=== PATIENT | male | born 1975 | race Caucasian/White ===

== ENCOUNTER 2019-09-09 13:47 | Emergency (ER) | payer SELFPAY ==
[~2019-09-09] VITALS: Ht 175.2 cm; Wt 69.1 kg
[~2019-09-09 13:47] MED LIST: MECL-124
[2019-09-09] MEDS ORDERED: DEXAMETHASONE 10 MG/ML (DECADRON) 1 ML VIAL IM ONE (14:15)
[2019-09-09] MEDS ORDERED: MECLIZINE 25 MG (ANTIVERT) TAB PO ONE (14:15)
--- NOTE | 2019-09-09 14:15 | ED EENT ---
History of Present Illness General Chief Complaint: Ear Problems Stated Complaint: DIZZINESS;LEFT EAR PAIN Nursing Triage Note: HAS BEEN DIZZY FOR 2 MONTHS WITH FLORESITA EAR PAIN FOR 2 WEEKS. REPORTS HE IS HOMELESS. HAS PMH PF BEING DIZZY CAN'T AFFORD ANTIVERT Source: patient Exam Limitations: no limitations History of Present Illness Date Seen by Provider: Sep 09, 2019 Time Seen by Provider: 14:13 Initial Comments To ER with dizziness for 2 months, has some tendinitis, recently got hearing aids, has a left-sided earache. Currently homeless and cannot afford his dizziness medications. Timing/Duration: other Severity: moderate Location: ear (L) Associated Symptoms: denies symptoms Allergies and Home Medications Allergies Coded Allergies: No Known Drug Allergies (Unverified Allergy, Mild, 07/22/09) Patient Home Medication List Home Medication List Reviewed: Yes Review of Systems Review of Systems Constitutional: see HPI Eyes: No Symptoms Reported Ears: See HPI Nose: no symptoms reported Mouth: no symptoms reported Throat: no symptoms reported Respiratory: no symptoms reported Cardiovascular: no symptoms reported Musculoskeletal: no symptoms reported Past Xbjmddd-Rkifhp-Hqundu Hx Patient Social History Alcohol Use: Occasionally Uses Alcohol Beverage of Choice: Beer Recreational Drug Use: Yes (METH,MARIJUANA) Smoking Status: Current Everyday Smoker Recent Foreign Travel: No Contact w/Someone Who Travel: No Recent Infectious Disease Expo: No Recent Hopitalizations: Yes (AGE 8) Past Medical History Surgeries: No Respiratory: Yes Cardiac: No Reproductive Disorders: No Musculoskeletal: Yes (TORN LIGAMENTS IN LEFT KNEE) Psychosocial: Yes (ANGER PROBLEMS,HX.HOSP.FOR MENTAL ILLNESS) Blood Disorders: No Physical Exam Vital Signs Vital Signs - First Documented 09/09/19 14:01 Temp 35.7 Pulse 95 Resp 18 B/P (MAP) 117/80 (92) Height, Weight, BMI Height: '" Weight: lbs. oz. kg; 22.00 BMI Method: General Appearance: WD/WN, no apparent distress Eyes: bilateral eye normal inspection, bilateral eye PERRL, bilateral eye EOMI Ears: bilateral ear auricle normal, bilateral ear canal normal, bilateral ear other (bilaterally there is scarring of the tympanic membranes, no bulging is seen.) Neck: non-tender, full range of motion Respiratory: normal breath sounds, no respiratory distress, no accessory muscle use Gastrointestinal: normal bowel sounds, non tender Skin: normal color, warm/dry Progress/Results/Core Measures Results/Orders My Orders Orders - NATALIA RIVERA APRN Meclizine Tablet (Antivert Tablet) (09/09/19 14:15) Dexamethasone Injection (Decadron Inject (09/09/19 14:15) Vital Signs/I&O 09/09/19 14:01 Temp 35.7 Pulse 95 Resp 18 B/P (MAP) 117/80 (92) Blood Pressure Mean: 92 Departure Impression Primary Impression: Vertigo Disposition: 01 HOME, SELF-CARE Condition: Stable Departure-Patient Inst. Decision time for Depature: 14:16 Referrals: NO,LOCAL PHYSICIAN (PCP/Family) Primary Care Physician Patient Instructions: Vertigo (a Type of Dizziness) (DC) Add. Discharge Instructions: 1. Return to ER for any concerns 2. Follow-up with her doctor next week 3. All discharge instructions reviewed with patient and/or family. Voiced understanding. NATALIA RIVERA APRN Sep 09, 2019 14:15
[2019-09-09 14:44] VITALS: BP 117/80
== END 2019-09-09 14:47 | disposition home or self-care (01) ==
LOC: EDUNIT# 13:47 → ER 13:48
DX: R42 Dizziness and giddiness (principal); F17.200 Nicotine dependence, unspecified, uncomplicated
CPT/HCPCS: 96372; 99284

== ENCOUNTER 2019-12-28 20:41 | Emergency (ER) | payer SELFPAY ==
[~2019-12-28] VITALS: Ht 175.3 cm; Wt 71.3 kg
--- OUTSIDE RECORDS SUMMARY | 2019-12-28 20:47 | XMS REPORT | Continuity of Care Document ---
Author Organization Unknown Address Unknown Phone Unavailable Allergies Active Description Code Type Severity Reaction Onset Reported/Identified Relationship to Patient Clinical Status Yes No Known Drug Allergies [id number] Drug Allergy Mild N/A 07/22/2009 Medications There is no data. Problems There is no data. Procedures There is no data. Results There is no data. Encounters ACCT No. Visit Date/Time Discharge Status Pt. Type Provider Facility Loc./Unit Complaint [id number] 09/09/2019 13:48:00 020 14:47:00 DIS Emergency NATALIA RIVERA APRN [facility] ER DIZZINESS;LEFT EAR PAIN
[2019-12-28] MEDS ORDERED: LACTATED RINGERS 1,000 ML IV ONE (21:00)
[2019-12-28] MEDS ORDERED: HYOSCYAMINE 0.125 MG (LEVSIN) TAB SL ONE (21:00)
[2019-12-28] MEDS ORDERED: ONDANSETRON 4 MG/2 ML (SDV) Z0FRAN IVP ONE (21:00)
[2019-12-28 21:23] LABS: BASOPHILS % (AUTO) 0 % (0-10); EOSINOPHILS # (AUTO) 0.2 10^3/uL (0.0-0.3); EOSINOPHILS % (AUTO) 3 % (0-10); HEMATOCRIT 39 % (40-54); HEMOGLOBIN 13.7 G/DL (13.3-17.7); LYMPHOCYTES # (AUTO) 2.5 X 10^3 (1.0-4.0); LYMPHOCYTES % (AUTO) 33 % (12-44); MEAN CORPUSCULAR HEMOGLOBIN 35 PG (25-34); MEAN CORPUSCULAR HGB CONC 35 G/DL (32-36); MEAN CORPUSCULAR VOLUME 100 FL (80-99); MONOCYTES # (AUTO) 0.9 X 10^3 (0.0-1.0); MONOCYTES % (AUTO) 12 % (0-12); NEUTROPHILS % (AUTO) 52 % (42-75); PLATELET COUNT 212 10^3/uL (130-400); RED CELL DISTRIBUTION WIDTH 12.3 % (10.0-14.5); WHITE BLOOD COUNT 7.7 10^3/uL (4.3-11.0)
[2019-12-28 21:35] LABS: ALBUMIN 3.7 GM/DL (3.2-4.5)
[2019-12-28 21:36] LABS: CHLORIDE 108 MMOL/L (98-107); POTASSIUM 3.6 MMOL/L (3.6-5.0); SODIUM 142 MMOL/L (135-145)
[2019-12-28 21:37] LABS: CALCIUM 8.5 MG/DL (8.5-10.1)
[2019-12-28 21:38] LABS: GLUCOSE 109 MG/DL (70-105); TOTAL PROTEIN 6.3 GM/DL (6.4-8.2)
[2019-12-28 21:39] LABS: CARBON DIOXIDE 25 MMOL/L (21-32)
[2019-12-28 21:40] LABS: BILIRUBIN,TOTAL 0.4 MG/DL (0.1-1.0)
[2019-12-28 21:41] LABS: ALKALINE PHOSPHATASE 31 U/L (40-136)
[2019-12-28 21:42] LABS: GFR ESTIMATED > 60
[2019-12-28 21:43] LABS: BUN/CREATININE RATIO 16
[2019-12-28 21:44] LABS: ALANINE AMINOTRANSFERASE 44 U/L (0-55); MAGNESIUM 1.7 MG/DL (1.6-2.4)
--- NOTE | 2019-12-28 22:04 | ED GI ---
General Chief Complaint: Abdominal/GI Problems Stated Complaint: DIARRHEA, ABD PAIN Nursing Triage Note: c/o abdominal cramping/diarrhea x2 days. Sepsis Screen: No Definite Risk Source of Information: Patient Exam Limitations: No Limitations History of Present Illness Date Seen by Provider: Dec 28, 2019 Time Seen by Provider: 20:50 Allergies and Home Medications Allergies Coded Allergies: No Known Drug Allergies (Unverified Allergy, Mild, 07/22/09) Past Hiphslb-Lpbvad-Tdtgvq Hx Patient Social History Alcohol Use: Occasionally Uses Number of Drinks Today: AA Alcohol Beverage of Choice: Beer Recreational Drug Use: Yes Drug of Choice: cannibus Smoking Status: Current Everyday Smoker Type Used: Cigarettes 2nd Hand Smoke Exposure: Yes Recent Foreign Travel: No Contact w/Someone Who Travel: No Recent Infectious Disease Expo: No Recent Hopitalizations: No Physical Abuse: No Sexual Abuse: No Mistreated: No Fear: No Immunizations Up To Date Tetanus Booster (TDap): Unknown Seasonal Allergies Seasonal Allergies: No Past Medical History Surgeries: No Respiratory: No Cardiac: No Neurological: No Reproductive Disorders: No Genitourinary: No Gastrointestinal: No Musculoskeletal: Yes (TORN LIGAMENTS IN LEFT KNEE) Endocrine: No HEENT: No Cancer: No Psychosocial: Yes (ANGER PROBLEMS,HX.HOSP.FOR MENTAL ILLNESS) Integumentary: No Blood Disorders: No Physical Exam Vital Signs Vital Signs - First Documented 12/28/19 20:45 Temp 37.4 Pulse 79 Resp 18 B/P (MAP) 151/100 (117) Pulse Ox 99 O2 Delivery Room Air Capillary Refill : Less Than 3 Seconds Height/Weight/BMI Height: '" Weight: lbs. oz. kg; 23.00 BMI Method: Progress/Results/Core Measures Results/Orders Lab Results Laboratory Tests Test 12/28/19 21:10 Range/Units White Blood Count 7.7 4.3-11.0 10^3/uL Red Blood Count 3.94 L 4.35-5.85 10^6/uL Hemoglobin 13.7 13.3-17.7 G/DL Hematocrit 39 L 40-54 % Mean Corpuscular Volume 100 H 80-99 FL Mean Corpuscular Hemoglobin 35 H 25-34 PG Mean Corpuscular Hemoglobin Concent 35 32-36 G/DL Red Cell Distribution Width 12.3 10.0-14.5 % Platelet Count 212 130-400 10^3/uL Mean Platelet Volume 10.0 7.4-10.4 FL Neutrophils (%) (Auto) 52 42-75 % Lymphocytes (%) (Auto) 33 12-44 % Monocytes (%) (Auto) 12 0-12 % Eosinophils (%) (Auto) 3 0-10 % Basophils (%) (Auto) 0 0-10 % Neutrophils # (Auto) 4.0 1.8-7.8 X 10^3 Lymphocytes # (Auto) 2.5 1.0-4.0 X 10^3 Monocytes # (Auto) 0.9 0.0-1.0 X 10^3 Eosinophils # (Auto) 0.2 0.0-0.3 10^3/uL Basophils # (Auto) 0.0 0.0-0.1 10^3/uL Sodium Level 142 135-145 MMOL/L Potassium Level 3.6 3.6-5.0 MMOL/L Chloride Level 108 H 98-107 MMOL/L Carbon Dioxide Level 25 21-32 MMOL/L Anion Gap 9 5-14 MMOL/L Blood Urea Nitrogen 13 7-18 MG/DL Creatinine 0.80 0.60-1.30 MG/DL Estimat Glomerular Filtration Rate > 60 BUN/Creatinine Ratio 16 Glucose Level 109 H 70-105 MG/DL Calcium Level 8.5 8.5-10.1 MG/DL Corrected Calcium 8.7 8.5-10.1 MG/DL Magnesium Level 1.7 1.6-2.4 MG/DL Total Bilirubin 0.4 0.1-1.0 MG/DL Aspartate Amino Transf (AST/SGOT) 33 5-34 U/L Alanine Aminotransferase (ALT/SGPT) 44 0-55 U/L Alkaline Phosphatase 31 L 40-136 U/L Total Protein 6.3 L 6.4-8.2 GM/DL Albumin 3.7 3.2-4.5 GM/DL My Orders Orders - LIBERTAD CARDOZA MD Cbc With Automated Diff (12/28/19 21:00) Comprehensive Metabolic Panel (12/28/19 21:00) Magnesium (12/28/19 21:00) Ua Culture If Indicated (12/28/19 21:00) Ed Iv/Invasive Line Start (12/28/19 21:00) Lactated Ringers (Lr 1000 Ml Iv Solution (12/28/19 21:00) Ondansetron Injection (Zofran Injectio (12/28/19 21:00) Hyoscyamine Sl Tablet (Levsin Sl Tablet) (12/28/19 21:00) Ketorolac Injection (Toradol Injection) (12/28/19 22:15) Medications Given in ED Current Medications Medications Dose Ordered Sig/Jesus Route Start Time Stop Time Status Last Admin Dose Admin Hyoscyamine Sulfate 0.25 mg ONCE ONCE SL 12/28/19 21:00 12/28/19 21:02 DC 12/28/19 21:15 0.25 MG Lactated Ringer's 1,000 ml @ 0 mls/hr Q0M ONCE IV 12/28/19 21:00 12/28/19 21:02 DC 12/28/19 21:16 0 MLS/HR Ondansetron HCl 8 mg ONCE ONCE IVP 12/28/19 21:00 12/28/19 21:02 DC 12/28/19 21:16 8 MG Vital Signs/I&O 12/28/19 20:45 Temp 37.4 Pulse 79 Resp 18 B/P (MAP) 151/100 (117) Pulse Ox 99 O2 Delivery Room Air Blood Pressure Mean: 117 Departure Impression Primary Impression: Diarrhea Qualified Codes: R19.7 - Diarrhea, unspecified Additional Impressions: Nausea alone Abdominal cramping Disposition: 01 HOME, SELF-CARE Condition: Improved Departure-Patient Inst. Decision time for Depature: 22:06 Referrals: NO,LOCAL PHYSICIAN (PCP/Family) Primary Care Physician Patient Instructions: Acute Abdomen (Belly Pain), Adult (DC), Diarrhea in Adolescents and Adults, Food Poisoning Add. Discharge Instructions: Drink plenty of clear liquids. Gradually advance your diet with small quantities of bland food as tolerated. Uses Zofran (ondansetron) as prescribed for nausea and vomiting. Use Levsin (hyoscyamine) as prescribed for abdominal cramping and diarrhea. Additionally you may use [id number] Imodium for diarrhea. For pain take Tylenol (acetaminophen) up to 1000 mg every 6 hours as needed. You should gradually improve over the next couple of days. If not worse symptoms worsen, return to care. All discharge instructions reviewed with patient and/or family. Voiced understanding. Scripts Ondansetron (Ondansetron Odt) 4 Mg Tab.rapdis 4 MG PO Q4H PRN for NAUSEA/VOMITING, #10 TAB Prov: LIBERTAD CARDOZA MD 12/28/19 Hyoscyamine Sulfate (Levsin-Sl) 0.125 Mg Tab.subl 1-2 TAB SL Q4H PRN for CRAMPS, #10 TAB 0 Refills Prov: LIBERTAD CARDOZA MD 12/28/19 LIBERTAD CARDOZA MD Dec 28, 2019 22:04
[2019-12-28] MEDS ORDERED: HYOS0.1283 SL (22:10)
[2019-12-28] MEDS ORDERED: ONDA4TAB11 PO (22:10)
[2019-12-28 22:14] LABS: BILIRUBIN,URINE NEGATIVE (NEGATIVE); CLARITY,URINE CLEAR; COLOR,URINE YELLOW; GLUCOSE, URINE (UA) NEGATIVE (NEGATIVE); KETONES,URINE NEGATIVE (NEGATIVE); LEUKOCYTE ESTERASE ,URINE NEGATIVE (NEGATIVE); NITRITE,URINE NEGATIVE (NEGATIVE); PROTEIN,URINE NEGATIVE (NEGATIVE)
[2019-12-28] MEDS ORDERED: KETOROLAC 30 MG/ML VIAL IVP ONE (22:15)
[2019-12-28 22:20] VITALS: BP 143/103
[2019-12-28 22:24] LABS: AMORPHOUS SEDIMENT,UR FEW AMOR URATES /LPF; BACTERIA,URINE NEGATIVE /HPF
== END 2019-12-28 22:23 | disposition home or self-care (01) ==
LOC: EDUNIT# 20:41 → ER 20:43
DX: R19.7 Diarrhea, unspecified (principal); R10.9 Unspecified abdominal pain; R11.0 Nausea; F17.210 Nicotine dependence, cigarettes, uncomplicated
CPT/HCPCS: 36415; 80053; 81000; 83735; 85025